=== PATIENT | female | born 1995 | race Caucasian/White ===

== ENCOUNTER 2018-11-07 19:45 | Emergency (ER) | payer SELFPAY ==
[~2018-11-07] VITALS: Ht 152.4 cm; Wt 56.7 kg
--- OUTSIDE RECORDS SUMMARY | 2018-11-07 19:50 | XMS REPORT ---
Author Author NAVEEN TERRAZAS Organization [facility] Address [address] [place] [address] Care Team Providers Care Thread Marker Name Role Phone NAVEEN TERRAZAS Unavailable PROBLEMS Unknown Problems ALLERGIES No Known Allergies ENCOUNTERS Encounter Location Date Diagnosis [facility] [address] [facility] [id number] [address] 04 Dec, 2017 Vaginal discharge N89.8 and Dysuria R30.0 [facility] [address] [facility] [id number] [address] 18 Dec, 2009 IMMUNIZATIONS No Known Immunizations SOCIAL HISTORY Never Assessed REASON FOR VISIT STD check- possibly exposed JStrasserRN PLAN OF CARE Activity Details Follow Up prn Reason:if symptoms worsen or not improving VITAL SIGNS Height 60 in 2018-01-03 Weight 110.0 lbs 2018-01-03 Temperature 98.4 degrees Fahrenheit 2018-01-03 Heart Rate 76 bpm 2018-01-03 Respiratory Rate 20 2018-01-03 BMI 21.48 kg/m2 2018-01-03 Blood pressure systolic 110 mmHg 2018-01-03 Blood pressure diastolic 64 mmHg 2018-01-03 MEDICATIONS Medication Instructions Dosage Frequency Start Date End Date Duration Status Nitrofurantoin Monohyd Macro 100 mg Orally every 12 hrs 1 capsule with food 12h Dec, Dec, 7 day(s) Active RESULTS No Results PROCEDURES Procedure Date Ordered Result Body Site Bacterial Vaginosis In House Jan 03, 2018 LAB NOT BILLED BY [facility] Jan 03, 2018 URINALYSIS, AUTO, W/O SCOPE Jan 03, 2018 No Charge Jan 03, 2018 INSTRUCTIONS MEDICATIONS ADMINISTERED No Known Medications MEDICAL (GENERAL) HISTORY Type Description Date Surgical History section 2011
--- OUTSIDE RECORDS SUMMARY | 2018-11-07 19:50 | XMS REPORT | Continuity of Care Document ---
Author Organization Unknown Address Unknown Allergies There is no data. Medications There is no data. Problems There is no data. Procedures There is no data. Results Test Result Range CULTURE, GENITAL - 01/03/18 16:13 CULTURE, GENITAL SEE NOTE NRG Encounters ACCT No. Visit Date/Time Discharge Status Pt. Type Provider Facility Loc./Unit Complaint [id number] 10/31/2018 15:00:00 10/31/2018 23:59:59 CLS Outpatient DAVID GIFFORD DO [facility] [id number] 01/03/2018 14:10:00 Document Registration
[2018-11-07] MEDS ORDERED: fentaNYL INJECTION 100 MCG/2 ML AMP ONE (19:56)
[2018-11-07] MEDS ORDERED: ONDANSETRON 4 MG/2 ML (SDV) Z0FRAN ONE (19:56)
[2018-11-07] MEDS ORDERED: ONDANSETRON 4 MG/2 ML (SDV) Z0FRAN IVP ONE (20:00)
[2018-11-07] MEDS ORDERED: fentaNYL INJECTION 100 MCG/2 ML AMP IVP ONE ×2 (20:00→22:00)
--- NOTE | 2018-11-07 20:09 | ED GU-Female ---
General Chief Complaint: TAX ASSOCIATE Stated Complaint: ABD PAIN Source: patient, other (bf lacey) Exam Limitations: no limitations History of Present Illness Date Seen by Provider: Nov 07, 2018 Time Seen by Provider: 19:56 Initial Comments Patient presents to ER by EMS from home with chief complaint that she's had abdominal pain starting in her low pelvis radiating up her right flank and into her right ribs and right neck. It is not worse with movement. Comes and goes and feels sharp and stabbing like a knife. She says she is about 4 weeks and went to see Dr. Hahn today passed out in his office so he gave her 2 liters of normal saline. EMS reports when they got to her first blood pressure was 104 in her second blood pressure was 84 systolic so they started a liter of saline. Patient has no other significant medical history. No fevers or chills but she has been having diarrhea and nausea for the past day. She has not had an ultrasound. Today was her first visit with Dr. Hahn and the plan was to do an ultrasound. 5W5D LMP 09/28/18. Allergies and Home Medications Allergies Coded Allergies: No Known Drug Allergies (Unverified , 11/07/18) Patient Home Medication List Home Medication List Reviewed: Yes Review of Systems Review of Systems Constitutional: No chills, No diaphoresis EENTM: No ear discharge, No ear pain Respiratory: No cough, No short of breath Cardiovascular: No chest pain, No edema Gastrointestinal: abdominal pain (r flank); No constipation; diarrhea (watery), nausea, vomiting Genitourinary: denies burning, denies discharge : Yes LMP: September 28, 2018 Musculoskeletal: No back pain, No joint pain Past Ewqwmwv-Ysloap-Exkulw Hx Patient Social History Alcohol Use: Denies Use Recreational Drug Use: No Smoking Status: Never a Smoker Recent Foreign Travel: No Contact w/Someone Who Travel: No Physical Exam Vital Signs Vital Signs - First Documented 11/07/18 19:51 Temp 98.8 Pulse 72 Resp 20 B/P (MAP) 99/56 (70) Pulse Ox 100 O2 Delivery Room Air Capillary Refill : Height, Weight, BMI Height: '" Weight: lbs. oz. kg; BMI Method: General Appearance: WD/WN, mild distress HEENT: PERRL/EOMI, normal ENT inspection; No pharynx normal (oropharynx is mildly dry) Neck: non-tender, full range of motion, supple, normal inspection Cardiovascular: normal peripheral pulses, regular rate, rhythm Respiratory: lungs clear, normal breath sounds, no accessory muscle use, other (shallow breathing and guarding from abdominal pain) Gastrointestinal: normal bowel sounds, guarding, tenderness (diffusely especially in the suprapubic ) Pelvic: normal external exam, tender uterus, other (chandelier sign, whitish discharge, modest amount) Neurologic/Psychiatric: alert, normal mood/affect, oriented x 3 Skin: normal color, warm/dry Progress/Results/Core Measures Suspected Sepsis SIRS Temperature: Pulse: Respiratory Rate: Laboratory Tests 11/07/18 20:25: White Blood Count 23.9H Blood Pressure / Mean: Laboratory Tests 11/07/18 20:25: Creatinine 0.49L, Platelet Count 325, Total Bilirubin 0.7 Results/Orders Lab Results Laboratory Tests Test 11/07/18 20:25 11/07/18 20:30 11/07/18 20:45 Range/Units White Blood Count 23.9 H 4.3-11.0 10^3/uL Red Blood Count 2.49 L 4.35-5.85 10^6/uL Hemoglobin 7.5 L 11.5-16.0 G/DL Hematocrit 22 L 35-52 % Mean Corpuscular Volume 90 80-99 FL Mean Corpuscular Hemoglobin 30 25-34 PG Mean Corpuscular Hemoglobin Concent 34 32-36 G/DL Red Cell Distribution Width 11.9 10.0-14.5 % Platelet Count 325 130-400 10^3/uL Mean Platelet Volume 9.8 7.4-10.4 FL Neutrophils (%) (Auto) 91 H 42-75 % Lymphocytes (%) (Auto) 6 L 12-44 % Monocytes (%) (Auto) 3 0-12 % Eosinophils (%) (Auto) 0 0-10 % Basophils (%) (Auto) 0 0-10 % Neutrophils # (Auto) 21.8 H 1.8-7.8 X 10^3 Lymphocytes # (Auto) 1.4 1.0-4.0 X 10^3 Monocytes # (Auto) 0.6 0.0-1.0 X 10^3 Eosinophils # (Auto) 0.0 0.0-0.3 10^3/uL Basophils # (Auto) 0.1 0.0-0.1 10^3/uL Neutrophils % (Manual) 77 % Lymphocytes % (Manual) 9 % Monocytes % (Manual) 6 % Eosinophils % (Manual) 0 % Basophils % (Manual) 0 % Band Neutrophils 8 % Blood Morphology Comment NORMAL Sodium Level 133 L 135-145 MMOL/L Potassium Level 3.9 3.6-5.0 MMOL/L Chloride Level 98 98-107 MMOL/L Carbon Dioxide Level 21 21-32 MMOL/L Anion Gap 14 5-14 MMOL/L Blood Urea Nitrogen 9 7-18 MG/DL Creatinine 0.49 L 0.60-1.30 MG/DL Estimat Glomerular Filtration Rate > 60 BUN/Creatinine Ratio 18 Glucose Level 164 H 70-105 MG/DL Calcium Level 8.0 L 8.5-10.1 MG/DL Corrected Calcium 8.5 8.5-10.1 MG/DL Total Bilirubin 0.7 0.1-1.0 MG/DL Aspartate Amino Transf (AST/SGOT) 11 5-34 U/L Alanine Aminotransferase (ALT/SGPT) 8 0-55 U/L Alkaline Phosphatase 52 40-136 U/L Total Protein 5.4 L 6.4-8.2 GM/DL Albumin 3.4 3.2-4.5 GM/DL Lipase 15 8-78 U/L Urine Color YELLOW Urine Clarity CLEAR Urine pH 7.0 5-9 Urine Specific Paxton 1.020 1.016-1.022 Urine Protein NEGATIVE NEGATIVE Urine Glucose (UA) NEGATIVE NEGATIVE Urine Ketones NEGATIVE NEGATIVE Urine Nitrite NEGATIVE NEGATIVE Urine Bilirubin NEGATIVE NEGATIVE Urine Urobilinogen 0.2 NORMAL MG/DL Urine Leukocyte Esterase NEGATIVE NEGATIVE Urine RBC (Auto) NEGATIVE NEGATIVE Urine RBC RARE /HPF Urine WBC RARE /HPF Urine Squamous Epithelial Cells 0-2 /HPF Urine Crystals NONE /LPF Urine Bacteria NONE /HPF Urine Casts NONE /LPF Urine Mucus MODERATE H /LPF Urine Culture Indicated NO Urine Test POSITIVE NEGATIVE Micro Results Microbiology 11/07/18 Wet Prep - Final, Complete My Orders Orders - SUAD LOPEZ Ua Culture If Indicated (11/07/18 19:53) Hcg,Qualitative Urine (11/07/18 19:53) Orthostatic Vital Signs (Adult (11/07/18 19:53) Cbc With Automated Diff (11/07/18 19:59) Comprehensive Metabolic Panel (11/07/18 19:59) Lipase (11/07/18 19:59) Fentanyl Injection (Sublimaze Injection (11/07/18 20:00) Ondansetron Injection (Zofran Injectio (11/07/18 20:00) Wet Prep (11/07/18 19:59) Neisseria Gonorrhea Swab (11/07/18 19:59) Chlam Dna Probe (11/07/18 19:59) Ondansetron Injection (Zofran Injectio (11/07/18 19:56) Fentanyl Injection (Sublimaze Injection (11/07/18 19:56) Ed Iv/Invasive Line Start (11/07/18 20:33) Manual Differential (11/07/18 20:25) Ceftriaxone For Iv Use (Rocephin For I (11/07/18 21:21) Doxycycline Injection (Vibramycin Inject (11/07/18 21:21) Hcg,Quantitative (11/07/18 21:39) Medications Given in ED Current Medications Medications Dose Ordered Sig/Gayathri Route Start Time Stop Time Status Last Admin Dose Admin Fentanyl Citrate 50 mcg ONCE ONCE IVP 11/07/18 20:00 11/07/18 20:03 DC 11/07/18 20:04 50 MCG Ondansetron HCl 4 mg ONCE ONCE IVP 11/07/18 20:00 11/07/18 20:03 DC 11/07/18 20:04 4 MG Vital Signs/I&O 11/07/18 11/07/18 19:51 20:35 Temp 98.8 Pulse 72 84 69 80 Resp 20 B/P (MAP) 99/56 (70) 146/103 (117) 90/54 (66) 110/51 (70) Pulse Ox 100 O2 Delivery Room Air Capillary Refill : Progress Note #1: Time: 20:10 Progress Note The patient is too uncomfortable to do an adequate examination at this time. We are going to give her 50 g of fentanyl and Zofran. We will obtain orthostatic vital signs. 1 L of normal saline was already initiated by EMS so we will allow that to run. Plan to do a pelvic exam, wet prep, GC chlamydia, urinalysis. C onsidering UTI, pyelonephritis, less likely kidney stone, GI source such as appendicitis or colitis and finally pelvic inflammatory disease. Vital signs are aseptic. Systolic blood pressure is a little over 100. Ultrasound is not available at this facility at this time. Progress Note #2: Time: 21:01 Progress Note Wet prep was negative for trichomonas and yeast and moderate bacteria. Blood cells. Plan to treat her with IV cefoxitin and doxycycline and transfer her to [facility] where they have ultrasound access to rule out a tubo-ovarian abscess. Progress Note #3: Time: 21:30 Progress Note We do not have cefotetan so we substituted Rocephin. The patient needs an ultrasound to rule out RIZWAN versus ectopic versus other surgical process. We do not ultrasound here so we called down to the [facility] ER and they do not have ultrasound available. We spoke to Dr. Hahn her TAX ASSOCIATE and he agrees to take her on the floor however since they do not have ultrasound available we'll have to send her elsewhere. 2030: [facility] [address] Dr[facility] accept the patient to the ED. They do not have any inpatient beds but they agreed to take her and board her as necessary. Departure Impression Primary Impression: PID (acute pelvic inflammatory disease) Additional Impressions: TOA (tubo-ovarian abscess) Ectopic Qualified Codes: O00.90 - Unspecified ectopic without intrauterine Disposition: XF SHT-TRM HOSP Condition: Stable Transfer Time Spoke to Accepting Phy: 21:[address] Cortés, [facility] [place] accepts the patient. Transfer Facility: [place], [place] Method of Transfer: EMS Departure-Patient Inst. Referrals: NO,LOCAL PHYSICIAN (PCP) Primary Care Physician SUAD LOPEZ Nov 07, 2018 20:09
[2018-11-07 20:35] VITALS: BP_SYST 110; BP_SYST 146; BP_SYST 90; BP_DIAS 103; BP_DIAS 51; BP_DIAS 54
[2018-11-07 20:38] LABS: HEMATOCRIT 22 % (35-52); HEMOGLOBIN 7.5 G/DL (11.5-16.0); MEAN CORPUSCULAR HEMOGLOBIN 30 PG (25-34); MEAN CORPUSCULAR HGB CONC 34 G/DL (32-36); MEAN CORPUSCULAR VOLUME 90 FL (80-99); MEAN PLATELET VOLUME 9.8 FL (7.4-10.4); PLATELET COUNT 325 10^3/uL (130-400); RED CELL DISTRIBUTION WIDTH 11.9 % (10.0-14.5); WHITE BLOOD COUNT 23.9 10^3/uL (4.3-11.0)
[2018-11-07 20:39] LABS: BASOPHILS # (AUTO) 0.1 10^3/uL (0.0-0.1); BASOPHILS % (AUTO) 0 % (0-10); EOSINOPHILS % (AUTO) 0 % (0-10); LYMPHOCYTES # (AUTO) 1.4 X 10^3 (1.0-4.0); LYMPHOCYTES % (AUTO) 6 % (12-44); MONOCYTES # (AUTO) 0.6 X 10^3 (0.0-1.0); MONOCYTES % (AUTO) 3 % (0-12); NEUTROPHILS # (AUTO) 21.8 X 10^3 (1.8-7.8); NEUTROPHILS % (AUTO) 91 % (42-75)
[2018-11-07 20:49] LABS: BILIRUBIN,URINE NEGATIVE (NEGATIVE); CLARITY,URINE CLEAR; COLOR,URINE YELLOW; GLUCOSE, URINE (UA) NEGATIVE (NEGATIVE); KETONES,URINE NEGATIVE (NEGATIVE); LEUKOCYTE ESTERASE ,URINE NEGATIVE (NEGATIVE); NITRITE,URINE NEGATIVE (NEGATIVE); PROTEIN,URINE NEGATIVE (NEGATIVE); RBC,URINE RARE /HPF; SQUAMOUS EPITHELIAL CELL,UR 0-2 /HPF; UROBILINOGEN,URINE 0.2 MG/DL (NORMAL); WBC,URINE RARE /HPF
[2018-11-07 20:50] LABS: BAND NEUTROPHILS 8 %; BASOPHILS % (MANUAL) 0 %; EOSINOPHILS % (MANUAL) 0 %; LYMPHOCYTES % (MANUAL) 9 %; MONOCYTES % (MANUAL) 6 %; NEUTROPHILS % (MANUAL) 77 %; RBC MORPH NORMAL
[2018-11-07 20:57] LABS: ALKALINE PHOSPHATASE 52 U/L (40-136); BILIRUBIN,TOTAL 0.7 MG/DL (0.1-1.0); BUN/CREATININE RATIO 18; CARBON DIOXIDE 21 MMOL/L (21-32); CHLORIDE 98 MMOL/L (98-107); CREATININE SERUM 0.49 MG/DL (0.60-1.30); GFR ESTIMATED > 60; GLUCOSE 164 MG/DL (70-105); POTASSIUM 3.9 MMOL/L (3.6-5.0); SODIUM 133 MMOL/L (135-145)
[2018-11-07 20:58] LABS: ALANINE AMINOTRANSFERASE 8 U/L (0-55); ALBUMIN 3.4 GM/DL (3.2-4.5); LIPASE 15 U/L (8-78); TOTAL PROTEIN 5.4 GM/DL (6.4-8.2)
[2018-11-07] MEDS ORDERED: cefTRIAXone FOR IV USE 1,000 MG in WATER (STERILE) FOR INJECTION 10 ML IV STA (21:21)
[2018-11-07] MEDS ORDERED: DOXYCYCLINE INJECTION 100 MG in NS (IVPB) 100 ML IV STA (21:21)
[2018-11-07] MEDS ORDERED: NS IV 1000 ML 1,000 ML IV SCH (22:00)
[2018-11-07 22:23] VITALS: BP 85/38
== END 2018-11-07 22:23 | disposition short-term general hospital (02) ==
LOC: ER FS 19:47
DX: O23.591 Infection of other part of genital tract in pregnancy, first trimester (principal); O23.521 Salpingo-oophoritis in pregnancy, first trimester; O00.90 Unspecified ectopic pregnancy without intrauterine pregnancy; Z3A.01 Less than 8 weeks gestation of pregnancy
CPT/HCPCS: 36415; 80053; 81000; 83690; 84702; 84703; 85007; 85027; 87210; 87491; 87591; 96365; 96375; 96376

== ENCOUNTER 2020-04-05 18:30 | Emergency (ER) | payer MEDICAID ==
[~2020-04-05] VITALS: Ht 152 cm; Wt 62.0 kg
[2020-04-05 18:58] LABS: BASOPHILS # (AUTO) 0.1 10^3/uL (0.0-0.1); BASOPHILS % (AUTO) 1 % (0-10); EOSINOPHILS # (AUTO) 0.2 10^3/uL (0.0-0.3); EOSINOPHILS % (AUTO) 2 % (0-10); HEMATOCRIT 37 % (35-52); HEMOGLOBIN 12.5 g/dL (11.5-16.0); LYMPHOCYTES # (AUTO) 3.6 10^3/uL (1.0-4.0); LYMPHOCYTES % (AUTO) 29 % (12-44); MEAN CORPUSCULAR HEMOGLOBIN 30 pg (25-34); MEAN CORPUSCULAR HGB CONC 34 g/dL (32-36); MEAN CORPUSCULAR VOLUME 91 fL (80-99); MEAN PLATELET VOLUME 9.9 fL (9.0-12.2); MONOCYTES # (AUTO) 0.7 10^3/uL (0.0-1.0); MONOCYTES % (AUTO) 5 % (0-12); NEUTROPHILS # (AUTO) 7.7 10^3/uL (1.8-7.8); NEUTROPHILS % (AUTO) 63 % (42-75); PLATELET COUNT 334 10^3/uL (130-400); WHITE BLOOD COUNT 12.3 10^3/uL (4.3-11.0)
[2020-04-05 18:59] LABS: BILIRUBIN,URINE NEGATIVE (NEGATIVE); CLARITY,URINE CLEAR; COLOR,URINE YELLOW; GLUCOSE, URINE (UA) NEGATIVE (NEGATIVE); KETONES,URINE NEGATIVE (NEGATIVE); LEUKOCYTE ESTERASE ,URINE NEGATIVE (NEGATIVE); NITRITE,URINE NEGATIVE (NEGATIVE); PROTEIN,URINE NEGATIVE (NEGATIVE)
--- NOTE | 2020-04-05 19:00 | NUR ---
Dr Bull in room with ultrasound. Renetta CABRAL in room with patient during ultrasound procedure.
[2020-04-05 19:08] LABS: CHLORIDE 104 MMOL/L (98-107); SODIUM 138 MMOL/L (135-145)
[2020-04-05 19:09] LABS: AMORPHOUS SEDIMENT,UR RARE AMOR URATES /LPF; BACTERIA,URINE FEW /HPF; RBC,URINE RARE /HPF; WBC,URINE RARE /HPF
[2020-04-05 19:10] LABS: CALCIUM 8.7 MG/DL (8.5-10.1); GLUCOSE 95 MG/DL (70-105)
[2020-04-05 19:11] LABS: CARBON DIOXIDE 22 MMOL/L (21-32)
[2020-04-05 19:14] LABS: CREATININE SERUM 0.71 MG/DL (0.60-1.30); GFR ESTIMATED > 60
[2020-04-05 19:15] LABS: BUN/CREATININE RATIO 15
--- NOTE | 2020-04-05 19:20 | NUR ---
Patient collected wet prep swab from vagina.
--- NOTE | 2020-04-05 19:22 | ED GU-Female ---
General Chief Complaint: Female Reproductive Stated Complaint: 6 WKS PREG - CRAMPING Nursing Triage Note: Pt ambulatory to ER with c/o lower abdominal pain that began today. Pt states she took a home test and it was positive. LMP was 02/25/20. She was seen by Dr. Chew on tuesday and had ultrasound and labs done in the clinic but states Dr did not see anything on ultrasound. She had an ectopic last year and is concerned. Nursing Sepsis Screen: No Definite Risk Source: patient Exam Limitations: no limitations History of Present Illness Date Seen by Provider: Apr 05, 2020 Time Seen by Provider: 18:53 Initial Comments Here with report of lower abdominal cramping with left greater than right. She found out recently that she is . She did have bedside ultrasound at Dr. Randolph's office earlier this week but they were unable to verify intrauterine . Patient has had previous ectopic on the left and had that ovary removed. She is concerned that she is having another ectopic as she is having pain on the left side. She states the tube is still in place. Does admit to constipation and a little more vaginal discharge this week. Denies pain otherwise. Denies vaginal bleeding. Timing/Duration: getting worse, other (5 days) Severity/Quality: moderate, aching, cramping Location: LLQ Radiation: back, other (Rectal) Activities at Onset: none Sexual [place] History: less than 2 months ago Associated Symptoms: abdominal pain; No dysuria, No fever/chills; lower back pa in; No nausea/vomiting, No urinary frequency Allergies and Home Medications Allergies Coded Allergies: No Known Drug Allergies (Unverified , 11/07/18) Patient Home Medication List Home Medication List Reviewed: Yes Review of Systems Review of Systems Constitutional: see HPI; No chills, No fever Respiratory: no symptoms reported Cardiovascular: no symptoms reported Gastrointestinal: see HPI Genitourinary: see HPI : Yes LMP: Feb 25, 2020 Musculoskeletal: see HPI Past Dkrulwc-Rgrmrj-Ybgesb Hx Past Med/Social Hx: Reviewed Nursing Past Med/Soc Hx Patient Social History Alcohol Use: Denies Use Recreational Drug Use: No Smoking Status: Never a Smoker 2nd Hand Smoke Exposure: No Recent Foreign Travel: No Contact w/Someone Who Travel: No Recent Infectious Disease Expo: No Recent Hopitalizations: No Physical Abuse: No Sexual Abuse: No Mistreated: No Fear: No Immunizations Up To Date PED Vaccines UTD: Yes Seasonal Allergies Seasonal Allergies: No Past Medical History Surgeries: Yes (ectopic 2019 surgically removed) Section Respiratory: Yes Asthma Currently Using CPAP: No Currently Using BIPAP: No Cardiac: No Neurological: No : Yes Last Menstrual Period: Feb 25, 2020 Genitourinary: No Gastrointestinal: No Musculoskeletal: No Endocrine: No HEENT: No Cancer: No Psychosocial: No Integumentary: No Family Medical History Reviewed Nursing Family Hx Physical Exam Vital Signs Vital Signs - First Documented 04/05/20 18:34 Temp 36.1 Pulse 79 Resp 14 B/P (MAP) 132/97 (109) Pulse Ox 98 O2 Delivery Room Air Capillary Refill : Less Than 3 Seconds Height, Weight, BMI Height: 5'0" Weight: 125lbs. 0oz. 56.880783tb; 26.00 BMI Method:Stated General Appearance: WD/WN, no apparent distress Cardiovascular: regular rate, rhythm, no murmur Respiratory: lungs clear, normal breath sounds Gastrointestinal: normal bowel sounds, non tender, soft, distended (Lower abdomen) Back: normal inspection, no CVA tenderness, no vertebral tenderness Neurologic/Psychiatric: alert, oriented x 3 Skin: normal color, warm/dry Progress/Results/Core Measures Suspected Sepsis Recent Fever Within 48 Hours: No Infection Criteria Present: None New/Unexplained Altered Menta: No Sepsis Screen: No Definite Risk SIRS Temperature: Pulse: 79 Respiratory Rate: 14 Laboratory Tests 04/05/20 18:48: White Blood Count 12.3H Blood Pressure 132 /97 Mean: 109 Laboratory Tests 04/05/20 18:48: Creatinine 0.71, Platelet Count 334 Results/Orders Lab Results Laboratory Tests Test 04/05/20 18:48 Range/Units White Blood Count 12.3 H 4.3-11.0 10^3/uL Red Blood Count 4.12 3.80-5.11 10^6/uL Hemoglobin 12.5 11.5-16.0 g/dL Hematocrit 37 35-52 % Mean Corpuscular Volume 91 80-99 fL Mean Corpuscular Hemoglobin 30 25-34 pg Mean Corpuscular Hemoglobin Concent 34 32-36 g/dL Red Cell Distribution Width 11.7 10.0-14.5 % Platelet Count 334 130-400 10^3/uL Mean Platelet Volume 9.9 9.0-12.2 fL Immature Granulocyte % (Auto) 0 % Neutrophils (%) (Auto) 63 42-75 % Lymphocytes (%) (Auto) 29 12-44 % Monocytes (%) (Auto) 5 0-12 % Eosinophils (%) (Auto) 2 0-10 % Basophils (%) (Auto) 1 0-10 % Neutrophils # (Auto) 7.7 1.8-7.8 10^3/uL Lymphocytes # (Auto) 3.6 1.0-4.0 10^3/uL Monocytes # (Auto) 0.7 0.0-1.0 10^3/uL Eosinophils # (Auto) 0.2 0.0-0.3 10^3/uL Basophils # (Auto) 0.1 0.0-0.1 10^3/uL Immature Granulocyte # (Auto) 0.0 0.0-0.1 10^3/uL Urine Color YELLOW Urine Clarity CLEAR Urine pH 6.0 5-9 Urine Specific Harvey 1.025 H 1.016-1.022 Urine Protein NEGATIVE NEGATIVE Urine Glucose (UA) NEGATIVE NEGATIVE Urine Ketones NEGATIVE NEGATIVE Urine Nitrite NEGATIVE NEGATIVE Urine Bilirubin NEGATIVE NEGATIVE Urine Urobilinogen 0.2 < = 1.0 MG/DL Urine Leukocyte Esterase NEGATIVE NEGATIVE Urine RBC (Auto) NEGATIVE NEGATIVE Urine RBC RARE /HPF Urine WBC RARE /HPF Urine Squamous Epithelial Cells 5-10 /HPF Urine Crystals PRESENT H /LPF Urine Amorphous Sediment RARE CHARLES URATES H /LPF Urine Bacteria FEW H /HPF Urine Casts NONE /LPF Urine Mucus SMALL H /LPF Urine Culture Indicated NO Sodium Level 138 135-145 MMOL/L Potassium Level 4.0 3.6-5.0 MMOL/L Chloride Level 104 98-107 MMOL/L Carbon Dioxide Level 22 21-32 MMOL/L Anion Gap 12 5-14 MMOL/L Blood Urea Nitrogen 11 7-18 MG/DL Creatinine 0.71 0.60-1.30 MG/DL Estimat Glomerular Filtration Rate > 60 BUN/Creatinine Ratio 15 Glucose Level 95 70-105 MG/DL Calcium Level 8.7 8.5-10.1 MG/DL Human Chorionic Gonadotropin, Quant 2727 H <5 MIU/ML Serum Test, Qualitative POSITIVE NEGATIVE My Orders Orders - NORMA WILLIAMSON MD Wet Prep (04/05/20 19:05) Vital Signs/I&O 04/05/20 18:34 Temp 36.1 Pulse 79 Resp 14 B/P (MAP) 132/97 (109) Pulse Ox 98 O2 Delivery Room Air Capillary Refill : Less Than 3 Seconds Blood Pressure Mean: 109 Progress Note : Progress Note Seen and evaluated. Bedside ultrasound performed without any obvious pole noted. Exam limited by bowel gas. We will check CBC, chemistries, hCG quant and UA. Self-administered wet prep test ordered. Monitor patient. 1950: Wet prep shows only rare WBCs but otherwise is negative. UA is negative. Hemoglobin is appropriate. Quant level is just not 2700. I will send a copy of the chart to Dr. Randloph and patient will follow up with him. I did discuss with her regarding constipation and she will work to resolve that. She does need follow-up early this week for recheck and further evaluation and this was discussed with her as well. She will call Dr. Randolph's office on Tuesday. Discharged home with return precautions. Patient verbalized understanding of instructions and agreement with plan. Departure Impression Primary Impression: Left lower quadrant abdominal pain during Additional Impression: Constipation Qualified Codes: K59.00 - Constipation, unspecified Disposition: HOME, SELF-CARE Condition: Stable Departure-Patient Inst. Decision time for Depature: 19:52 Referrals: NO,LOCAL PHYSICIAN (PCP/Family) Primary Care Physician Patient Instructions: Constipation, Adult (DC), Ectopic (DC) Add. Discharge Instructions: All discharge instructions reviewed with patient and/or family. Voiced understanding. You may take MiraLAX or the generic 1 capful up to 3 times daily for the next 2 days and then once or twice daily thereafter to keep stools in normal range. You may increase or decrease the dose to keep stools appropriate. Drink plenty of fluids. Follow-up with Dr. Randolph early this week for recheck and further evaluation. Call his office first thing Tuesday for appointment. Return for worse pain, vaginal bleeding, weakness, breathing problems or other concerns as needed. Copy Copies To 1: PATRICIA RANDOLPH MD, TIMOTHY D MD Apr 05, 2020 19:22
[2020-04-05 19:58] VITALS: BP 132/97
== END 2020-04-05 20:00 | disposition home or self-care (01) ==
LOC: EDUNIT# 18:30 → ER 18:32
DX: O26.891 Other specified pregnancy related conditions, first trimester (principal); R10.32 Left lower quadrant pain; K59.00 Constipation, unspecified; Z3A.00 Weeks of gestation of pregnancy not specified
CPT/HCPCS: 36415; 80048; 81000; 84702; 84703; 85025; 86900; 86901; 87210

== ENCOUNTER 2021-08-11 05:29 | Outpatient (CLI) | payer MEDICAID ==
[~2021-08-11] VITALS: Ht 152.4 cm; Wt 60.5 kg
[2021-08-11] MEDS ORDERED: OXYC1TAB87 PO (15:29)
[2021-08-11] MEDS ORDERED: IBUP-1780 PO (15:29)
[2021-08-12] MEDS ORDERED: OXYC1TAB87 PO ×2 (12:50→14:29)
== END 2021-08-11 10:15 | disposition home or self-care (01) ==
LOC: PREOP 05:29
PROVIDERS: ATTEND Obstetrics & Gynecology
DX: Z01.818 Encounter for other preprocedural examination (principal)

== ENCOUNTER 2021-08-12 11:25 | Day surgery (SDC) | payer MEDICAID ==
--- NOTE | 2021-08-11 15:32 | Discharge Inst-Surgical ---
Discharge Inst-Surgical Depart Medication/Instructions New, Converted or Re-Newed RX: Other Consults/Follow Up Patient Instructions: As directed Orders & Referrals Follow Up Appt: Call to make follow up appt. for patient in 1 week for postop check and suture removal. Activity: Rest for 24 hours, than as tolerated. Wound Care: May remove Band-Aid tomorrow. Replace as desired. Keep incisions clean and dry. Wash daily with soap and water. Patient's order for Percocet has been sent from my office to her pharmacy Diet: As tolerated may shower or tub bathe as desired. No driving for 24 hours, no alcoholic beverages for 24 hours, and nothing per vagina (no tampons, douching, or intercoarse) for 2 weeks. Patient to return to the clinic as soon as possible for: Temperature greater than 101F, Severe Pain, Foul discharge from incision or vagina, Excessive Bleeding (more than a period). Activity Activity as Tolerated: Yes Diet Discharge Diet: No Restrictions PATRICIA HA MD Aug 11, 2021 15:32
[2021-08-12] VITALS (11 sets, daily range): BP systolic 101–153; BP diastolic 63–92
[~2021-08-12] VITALS: Ht 152.4 cm; Wt 60.5 kg
[~2021-08-12 11:25] MED LIST: IBUP-1780 PO; OXYC1TAB87 PO
[2021-08-12] MEDS ORDERED: KETOROLAC 30 MG/ML VIAL IVP ONE (11:45)
[2021-08-12] MEDS ORDERED: fentaNYL INJ 100 MCG/2 ML AMP IVP PRN (11:45)
[2021-08-12] MEDS ORDERED: D5 LR IV SOLUTION 1,000 ML IV SCH (11:45)
[2021-08-12] MEDS ORDERED: ceFAZolin INJECTION 1,000 MG VIAL IV ONE (11:45)
[2021-08-12] MEDS ORDERED: oxyCODONE/APAP 5/325MG (PERCOCET 5) TABLET PO PRN (11:45)
[2021-08-12] MEDS ORDERED: ONDANSETRON 4 MG/2 ML (SDV) Z0FRAN IVP PRN ×3 (11:45→14:15)
[2021-08-12] MEDS ORDERED: MIDAZOLAM 2 MG/2 ML (VERSED) VIAL ONE (12:00)
[2021-08-12] MEDS ORDERED: IBUPROFEN 800 MG (MOTRIN) TAB PO SCH (12:00)
[2021-08-12] MEDS ORDERED: fentaNYL INJ 100 MCG/2 ML AMP ONE ×2 (12:00→13:05)
[2021-08-12] MEDS ORDERED: LIDOCAINE/EPI 2% 1:100,00 (XYLOCAINE) 20 ML VIAL ONE (12:07)
[2021-08-12] MEDS ORDERED: METHYLENE BLUE 0.5% (PROVAYBLUE) 50 mg/10 ml vial IV ONE (12:12)
[2021-08-12] MEDS: LACTATED RINGERS 1,000 ML IV PRN ×2 (12:19→13:40)
[2021-08-12 12:20] LABS: BASOPHILS # (AUTO) 0.1 10^3/uL (0.0-0.1); BASOPHILS % (AUTO) 1 % (0-10); EOSINOPHILS # (AUTO) 0.2 10^3/uL (0.0-0.3); EOSINOPHILS % (AUTO) 2 % (0-10); HEMATOCRIT 37 % (35-52); HEMOGLOBIN 12.4 g/dL (11.5-16.0); LYMPHOCYTES # (AUTO) 2.2 10^3/uL (1.0-4.0); LYMPHOCYTES % (AUTO) 22 % (12-44); MEAN CORPUSCULAR HEMOGLOBIN 29 pg (25-34); MEAN CORPUSCULAR HGB CONC 33 g/dL (32-36); MEAN CORPUSCULAR VOLUME 88 fL (80-99); MEAN PLATELET VOLUME 9.8 fL (9.0-12.2); MONOCYTES # (AUTO) 0.8 10^3/uL (0.0-1.0); MONOCYTES % (AUTO) 8 % (0-12); NEUTROPHILS # (AUTO) 6.7 10^3/uL (1.8-7.8); NEUTROPHILS % (AUTO) 67 % (42-75); PLATELET COUNT 408 10^3/uL (130-400)
--- NOTE | 2021-08-12 12:49 | Progress Note-Post Operative ---
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
--- NOTE | 2021-08-12 12:49 | Progress Note-Pre Operative ---
Pre-Operative Progress Note H&P Reviewed The H&P was reviewed, patient examined and no changes noted. Date Seen by Provider: Aug 12, 2021 Time Seen by Provider: 12:48 Date H&P Reviewed: Aug 12, 2021 Time H&P Reviewed: 12:48 Pre-Operative Diagnosis: Chronic pelvic pain/endometriosis/Dysmenorrhea/Pelvic adhesions PATRICIA HA MD Aug 12, 2021 12:48
[2021-08-12] MEDS ORDERED: OXYC1TAB87 PO ×2 (12:50→14:29)
[2021-08-12] MEDS ORDERED: ROCURONIUM 10 MG/ML 5 ML SYRINGE IV ONE (13:05)
[2021-08-12] MEDS ORDERED: NEOSTIGMINE 3 MG/3 ML VIAL ONE (13:05)
[2021-08-12] MEDS ORDERED: GLYCOPYRROLATE 0.2 MG/ML (ROBINUL) 2 ML VIAL ONE (13:05)
[2021-08-12] MEDS ORDERED: ONDANSETRON 4 MG/2 ML (SDV) Z0FRAN ONE (13:05)
[2021-08-12] MEDS ORDERED: LIDOCAINE PF 2% 5 ML (XYLOCAINE) VIAL ONE (13:05)
[2021-08-12] MEDS ORDERED: proPOfol 200 MG/20 ML (DIPRIVAN) VIAL IV ONE (13:05)
[2021-08-12] MEDS ORDERED: SEVOFLURANE (ULTANE) 15 ML INHAL SOLN ONE (13:26)
[2021-08-12] MEDS ORDERED: HYDROmorphone 2 MG/ML VIAL (DILAUDID) IV ONE (14:15)
[2021-08-12] MEDS ORDERED: morphine INJ 10 MG/ML 1ML (SYR OR VIAL) IVP ONE (14:15)
[2021-08-12] MEDS ORDERED: KETOROLAC 30 MG/ML VIAL ONE (14:26)
[2021-08-12] MEDS ORDERED: oxyCODONE/APAP 5/325MG (PERCOCET 5) TABLET ONE (14:57)
--- NOTE | 2021-08-12 14:58 | Anesthesia-General Post-Op ---
General Patient Condition Mental Status/LOC: Same as Preop Cardiovascular: Satisfactory Nausea/Vomiting: Absent Respiratory: Satisfactory Pain: Controlled Complications: Absent Post Op Complications Complications None Follow Up Care/Instructions Patient Instructions None needed. Anesthesia/Patient Condition Patient Condition Patient is doing well, no complaints, stable vital signs, no apparent adverse anesthesia problems. JOON VYAS DO Aug 12, 2021 14:57
--- NOTE | 2021-08-12 18:52 | OPERATIVE REPORT ---
DATE OF SERVICE: 08/12/2021 OPERATIVE PROCEDURE: Laparoscopy for destruction of endometriosis, adhesiolysis, and chromopertubation. PREOPERATIVE DIAGNOSIS: Chronic pelvic pain, likely endometriosis, likely pelvic adhesions. OPERATIVE DESCRIPTION: With the patient in the supine position under satisfactory general anesthesia, she was repositioned in dorsal lithotomy position in the [facility] and prepped and draped in the usual fashion for abdominal and vaginal surgery. Weighted speculum placed in posterior fornix of vagina, cervix exposed and grasped anteriorly with a single tooth tenaculum. Uterus was sounded to 9 cm with uterine sound. The cervix was then serially dilated with Kojo dilators to accommodate a uterine manipulator, which was placed and the bulb filled with air. The tenaculum and speculum were removed. The patient's urinary bladder was drained with a straight catheter. The abdomen was exposed. A 5 mm incision was made in the left upper quadrant, a 5 mm incision in the umbilicus and a 5 mm incision superior to the symphysis pubis. All 3 incision sites were infiltrated with 0.25% Marcaine with epinephrine prior to incision. Veress needle was placed in the left upper quadrant incision. Correct placement confirmed with water drop test. The abdomen was insufflated then with 2.4 liters of carbon dioxide. The Veress needle was removed and a 5 mm Optiview laparoscopic port placed. The patient was placed in Trendelenburg allowing the bowel spill out of the pelvis. Ports of 5 mm were placed suprapubically and infraumbilically through those incisions. The pelvis was examined. Initially, the left fallopian tube appeared to be absent, but it was found to be a very tortuous involved in adhesions due to the patient's history of removing the left ovary due to ovarian ectopic. The left portion of the uterus appeared normal. It appeared to be a small right uterine rudimentary horn with a narrow small fallopian tube emanating from that. The right ovary appeared normal, but was significantly involved with endometriosis. There was a large endometriosis implant at the junction of the right uterosacral ligament to the posterior lower uterine segment. There were several other endometriosis implants in the right ovarian fossa. The left ovarian fossae appeared clear. The laparoscope was rotated. The appendix was identified. It was a normal vermiform appendix. Laparoscope was brought back to the pelvis. Chromopertubation was performed using a dilute solution of indigo carmine free spill was noted promptly on the left,. No spill was noted on the right, which would be consistent with a rudimentary horn on the right side. Attention was turned to the endometriosis implants on the ovary and the ovarian fossa on the right. These were all touched with electrocautery to destroy them. The large lesion at the junction of the right uterosacral ligament and the uterus was partially removed and sent to pathology for permanent section. The balance of that lesion was touched with electrocautery to destroy it. The left fallopian tube was lysed from its adhesions where tube was basically coiled and compacted upon to the left side of the uterus. The ovary was surgically absent on that side with the fallopian tube was restored somewhat to a normal free anatomy with the adhesiolysis. Repeat chromopertubation again showed free spill from the fallopian tube, but there was some evidence of clubbing involving the fimbria of the fallopian tube. The pelvis was copiously irrigated and examined for hemostasis, which was complete. All the irrigant was evacuated out. There was no remaining abnormal pathology and the procedure at this point was terminated. The operative instruments were removed under direct vision as were the ports. The abdomen was evacuated of insufflating gas and then the skin incisions were closed with interrupted sutures of 3-0 nylon. The uterine manipulator was deflated and removed from the uterus. Speculum replaced in the vagina and the cervix was exposed and found to be completely hemostatic. Sponge and needle counts were correct on completion of the procedure. Blood loss was minimal. The patient tolerated the procedure well and was uneventfully awakened from her general anesthesia and transferred to recovery room in stable condition. Plans were for discharge home PAR. Job ID: [id number] DocumentID: [id number] Dictated Date: 08/12/2021 14:26:15 Poultry Picker Date: 08/12/2021 18:51:26 Dictated By: PATRICIA HA MD
== END 2021-08-12 16:30 | disposition home or self-care (01) ==
LOC: SDC 11:25
PROVIDERS: ATTEND Obstetrics & Gynecology
DX: N80.9 Endometriosis, unspecified (principal); N73.6 Female pelvic peritoneal adhesions (postinfective); G89.29 Other chronic pain; N92.6 Irregular menstruation, unspecified; E28.2 Polycystic ovarian syndrome; R10.2 Pelvic and perineal pain; Z87.891 Personal history of nicotine dependence
CPT/HCPCS: 36415; 84703; 85025; 87081